=== PATIENT | female | born 1945 | race Caucasian/White ===

== ENCOUNTER 2023-11-17 15:26 | Emergency (ER) | payer MEDICARE, OTHER, SELFPAY ==
[2023-11-17] VITALS (7 sets, daily range): BP systolic 117–144; BP diastolic 61–81
[2023-11-17 16:00] LABS: % Basophils 0.2 % (0-2); % Eosinophils 1.3 % (0-6); % Immature Granulocytes 0.4 % (0-0.5); % Monocytes 5.7 % (1.7-9.3); % Neutrophils 81.4 % (42.2-75.2); Absolute Eosinophils 0.2 10^3/uL (0-0.7); Absolute Immature Granulocytes 0.1 10^3/uL (0-0.05); Absolute Lymphocytes 1.5 10^3/uL (1.2-3.4); Absolute Monocytes 0.8 10^3/uL (0.1-0.6); Hematocrit 37.7 % (37.0-47.0); Hemoglobin 12.9 g/dL (12.0-16.0); Mean Corp Hgb Conc. 34.2 g/dL (33.0-37.0); Mean Corpuscular Volume 84.7 fL (81.0-99.0); Mean Platelet Volume 8.5 fL (7.4-10.4); Nucleated Red Blood Cells % 0 %; Platelet Count 345 10^3/uL (130-400); Red Blood Cell Count 4.45 10^6/uL (4.20-5.40); Red Cell Dist. Width 14.2 % (11.5-14.5); White Blood Cell Count 13.5 10^3/uL (4.8-10.8)
[2023-11-17 16:08] LABS: INR 1.07; PT 13.7 Sec (11.4-14.6)
[2023-11-17 16:12] LABS: ALT (SGPT) 15 U/L (0-35); AST (SGOT) 19 U/L (14-36); Albumin 4.3 g/dl (3.5-5.0); Alkaline Phosphatase 34 U/L (38-126); Blood Urea Nitrogen 12 mg/dl (7-17); Calcium 10.2 mg/dl (8.4-10.2); Carbon Dioxide 28 mmol/L (22-30); Chloride 97 mmol/L (98-107); Glucose 120 mg/dl (70-99); Sodium 134 mmol/L (135-145); Total Bilirubin 0.6 mg/dl (0.2-1.3); Total Protein 6.8 g/dl (6.3-8.2); eGFR > 60.00
[2023-11-17 16:23] LABS: Troponin I < 0.012 ng/ml
--- NOTE | 2023-11-17 18:18 | ED.GENMED ---
History of Present Illness
General
Chief Complaint: Chest Pain
Source: patient
Exam Limitations: none
Time Seen by Provider: 11/17/23 17:05
History of Present Illness
History of Present Illness:
This is a pleasant 77-year-old female that presents with substernal epigastric pain that radiates through to her back. Last evening, at dinner, she had [facility] [facility] appetizer. When she went to bed later that evening, she developed the pain around 1
AM. She reports that the pain persisted when she awakened. She denies any other radiation. She states that when she eats, the pain seems to get worse. She denies vomiting but does report nausea with a 'bad taste in her mouth. Patient did take
Pepcid but she reports it did not provide her relief. Denies previous cardiac history.
Review of Systems
Review of Systems
Allergies reviewed?: Yes
All Other Systems: ROS reviewed and negative except as documented in HPI and ROS
Constitutional: Reports no symptoms
EENT: Reports no symptoms
Respiratory: Denies cough or trouble breathing
Cardiac: Reports chest pain; Denies diaphoresis, palpitations or syncope
ABD/GI: Reports abdominal pain (Epigastric pain) and nausea; Denies vomiting, diarrhea or constipated
: Reports no symptoms
Musculoskeletal: Reports no symptoms
Skin: Reports no symptoms
Neurological: Reports no symptoms
Endocrine: Reports no symptoms
Hematologic/Lymphatic: Reports no symptoms
Psychiatric: Reports no symptoms
Phy Exam
General Physical Exam
General Presentation: well appearing and no apparent distress
General Skin: warm and dry
General Habitus: normal
General Mental: alert
General Hydration: appears well hydrated
ENT Exam
ENT Exam: EOMI, pharynx normal, neck supple and normocephalic
Eye Exam
Eye Exam: PERRL, cornea clear and conjunctiva normal
Cardiovascular Exam
Cardiovascular Exam: regular rate/rhythm, no edema, no murmur and normal peripheral pulses
Pulmonary Exam
Pulmonary Exam: lungs clear, no respiratory distress, no rales, no crackles, no rhonchi, no stridor, no wheezing and no cough
Gastrointestinal Exam
Gastrointestinal Exam: normal bowel sounds, non tender, soft, no organomegaly, no pulsatile mass and non distended
Neurological Exam
Neurological Exam: alert, oriented x3, no motor deficits and speech normal
Musculoskeletal Exam
Musculoskeletal Exam: full ROM and no edema
Skin Exam
Skin Exam: normal color, warm/dry, no rash and no petechia
Psychiatric Exam
Psychiatric Exam: normal mood/affect
Scores
Heart Score for Chest Pain Patients
STEMI patient?: Not applicable
History: Slightly or Non-Suspicious
ECG: Normal
Age: >/= 65 years
Risk Factors: 1 or 2 Risk Factors
Troponin: </= Normal Limit
Heart Score for Chest Pain Patients: 3
Heart Score Risk: 2.5% MACE over next 6 weeks
Course
Orders/Labs/Results
Orders:
Orders
11/17/23 15:36
Electrocardiogram (*1) Urgent
Reason for Study: Chest Pain
EKG- Treatment ONCE
11/17/23 15:50
Complete Blood Count/With Diff Urgent
Comprehensive Metabolic Panel Urgent
Prothrombin Time Urgent
Troponin I Urgent
11/17/23 18:17
Electrocardiogram (*1) Urgent
Reason for Study: Abdominal Pain
Sucralfate Suspension [Carafate Suspension] 1 gm PO NOW STA
11/17/23 18:18
EKG- Treatment ONCE
0.9% Sodium Chloride 1000 ml [Nss] 1,000 ml IV BOLUS
11/17/23 18:37
Lipase Urgent
Troponin I Urgent
Abnormal Lab Results
11/17/23
15:50
WBC 13.5 H 10^3/uL
(4.8-10.8)
Abs Immat Gran (auto) 0.1 H 10^3/uL
(0-0.05)
Absolute Neuts (auto) 11.0 H 10^3/uL
(1.4-6.5)
Absolute Monos (auto) 0.8 H 10^3/uL
(0.1-0.6)
Neutrophils % 81.4 H %
(42.2-75.2)
Lymphocytes % 11.0 L %
(20.5-51.1)
Sodium 134 L mmol/L
(135-145)
Chloride 97 L mmol/L
(98-107)
Glucose 120 H mg/dl
(70-99)
Alkaline Phosphatase 34 L U/L
(38-126)
11/17/23 15:50
11/17/23 15:50
Vital Signs
Initial and Last Documented VS:
Initial Vital Signs
Temp Pulse Resp BP Pulse Ox
98.5 F 98 18 144/80 98
11/17/23 15:29 11/17/23 15:29 11/17/23 15:29 11/17/23 15:29 11/17/23 15:29
Last Documented Vital Signs
Temp Pulse Resp BP Pulse Ox
98.5 F 97 20 117/63 98
11/17/23 15:29 11/17/23 21:15 11/17/23 21:15 11/17/23 21:00 11/17/23 15:29
*Critical Care Note
Total Time (30-74mins, 75-104mins- exclusive of procedures): Not Applicable
Update Note
Update Note:
Patient states that her symptoms resolved immediately after the Carafate. She does feel better and wished to be discharged home. She desires no further testing at this time. Discussed return precautions with patient and family.
ED Attending Note
-
Portions of this chart may have been created with voice recognition software.� Occasional wrong word or��sound alike� substitutions may have occurred due to the inherent limitations of voice recognition software.
Discharge Plan
Departure
Patient Disposition: Home (Routine Discharge)
Date of Disposition: 11/17/23
Time of Disposition: 20:53
Patient with high blood pressure during this ER visit?: Yes
Condition: Good
Discharge Problem:
Epigastric abdominal pain
Instructions: Acid Reflux and GERD in Adults (DC), BLOOD PRESSURE
Prescriptions:
New
sucralfate [Carafate] 100 mg/mL suspension
10 ml PO QID Qty: 200 0RF
Referrals:
Krystyna Davenport MD [Family Provider] -
Kolton Sanderson MD [Active] - Call in 1-3 days for appt
Activity Restrictions/Additional Instructions:
Please continue to take Pepcid as previously directed.
It was a pleasure meeting you and taking part in your care. We hope for your continued healing and wellness.
Please read discharge instructions in their entirety. However, they are for general education and may not describe your exact diagnosis at discharge. Information on your ER visit and medical conditions were discussed with you along with appropriate
follow up information...
If indicated, please take your medications as instructed and indicated on discharge paperwork.
Please schedule a follow up appointment as directed. Call to schedule an appointment
Please return to the emergency department with ANY change in, persisting, or worsening of symptoms. If any of your symptoms do not improve, or persist, or become more severe within 6-12 hours, please return to the emergency department for further
care.
Please return to the emergency department if you develop a headache, neck pain/stiffness, fever greater than 100.4F, chest pain, shortness of breath, persistent nausea, vomiting, slurred speech, difficulty walking, numbness/tingling, weakness, signs
of infection or any other symptoms that are worrisome to you.
If you have any questions or concerns please do not hesitate to call the Hospital at or E-mail me directly at [email or web address]
Interventions
Interventions:
*Risk Screen - Suicide Last Done: 11/17/23 15:29
*General Assessment Last Done: 11/17/23 15:29
*Neglect/Abuse Screening Last Done: 11/17/23 15:29
ED- Fall Risk Assessment Last Done: 11/17/23 16:38
*ED COVID-19 Vaccine History Last Done: 11/17/23 21:28
*Nursing Disposition Last Done: 11/17/23 21:28
ED- Cardiac Assessment Last Done: 11/17/23 16:38
Discharge Date and Time
Discharge Date/Time: 11/17/23 21:29
Print Language: [place]
[2023-11-17] MEDS: CARAFATE SUSPENSION 1 GM PO (18:23)
[2023-11-17] MEDS: NSS 1000 IV (18:24)
[2023-11-17 18:56] LABS: Lipase 63 U/L (23-300)
[2023-11-17 19:10] LABS: Troponin I < 0.012 ng/ml
== END 2023-11-17 21:29 | disposition home or self-care (01) ==
LOC: EMR 15:26
PROVIDERS: Emergency Medicine; EMERGENCY PHYSICIAN Student in an Organized Health Care Education/Training Program; FAMILY PHYSICIAN Family Medicine
DX: R10.13 Epigastric pain (principal); R11.0 Nausea
CPT/HCPCS: 99283; 96360; 80053; 83690; 84484; 85025; 85610; 93005